=== PATIENT | female | born 1945 | race Native Hawaiian/Other Pacific Islander ===

== ENCOUNTER 2018-07-31 17:37 | Outpatient (CLI) | payer OTHER | END 2018-07-31 18:07 | disposition short-term general hospital (02) | LOC: AMB 17:37 | DX: M25.512 Pain in left shoulder (principal); W18.39XA Other fall on same level, initial encounter; Y93.89 Activity, other specified; Y92.89 Other specified places as the place of occurrence of the external cause | CPT/HCPCS: A0425; A0427 ==